=== PATIENT | male | born 1990 | race Caucasian/White ===

== ENCOUNTER 2020-08-29 18:05 | Emergency (ER) | payer OTHER ==
[~2020-08-29] VITALS: Ht 172.7 cm; Wt 95.3 kg
[2020-08-29 18:16] VITALS: BP 119/84
[2020-08-29] MEDS ORDERED: ACETAMINOPHEN ES 500 MG TABLET ONE (18:27)
[2020-08-29] MEDS: ACETAMINOPHEN ES 500 MG TABLET PO ONE (18:31)
== END 2020-08-29 18:52 | disposition home or self-care (01) ==
LOC: ER 18:10
DX: U07.1 COVID-19 (principal); R50.9 Fever, unspecified; R05 Cough
CPT/HCPCS: 71045-TC